=== PATIENT | female | born 1995 | race Caucasian/White ===

== ENCOUNTER 2018-05-19 16:44 | Emergency (ER) | payer OTHER ==
[~2018-05-19 16:44] MED LIST: ISOVUE-370 76%-LOCM 1 ML ONE
[2018-05-19 18:41] LABS: #Basophils 0.1 thou/uL (0.0-0.2); #Eosinphils 0.4 thou/uL (0.0-0.7); #Lymphocytes 1.7 thou/uL (1.20-3.40); #Monocytes 0.8 thou/uL (0.11-0.59); #Neutrophils 7.9 thou/uL (1.40-6.50); %Basophils 0.6 % (0.0-1.0); %Eosinophils 3.3 % (0.0-10.0); %Lymphocytes 15.5 % (21.0-51.0); %Monocytes 7.1 % (0.0-10.0); %Neutrophils 73.5 % (42.0-75.0); Hemoglobin 13.2 g/dL (12.0-16.0); Mean Corpuscular HGB CONC 31.9 g/dL (32.0-36.0); Mean Corpuscular Hemoglobin 29.1 pg (27.0-31.0); Mean Corpuscular Volume 91.1 fL (78.0-98.0); Mean Platelet Volume 6.3 fL (7.4-10.4); Platelet Count 460 thou/uL (130-400); RBC Distribution Width 11.7 % (11.5-14.5); Red Blood Cell (RBC) Count 4.53 mill/uL (4.20-5.40); White Blood Cell (WBC) Count 10.7 thou/uL (4.8-10.8)
[2018-05-19 19:01] LABS: ALT (SGPT) 38 U/L (8-55); AST (SGOT) 24 U/L (5-34); Alkaline Phosphatase 96 U/L (40-150); Anion Gap 11 mmol/L (10-20); BUN (Urea Nitrogen) 11 mg/dL (7.0-18.7); Bilirubin, Total 0.2 mg/dL (0.2-1.2); Calc. Creatinine Clearance 0 mL/min (70-130); Calcium 9.6 mg/dL (7.8-10.44); Carbon Dioxide 28 mmol/L (22-29); Chloride 103 mmol/L (98-107); Estimated GFR-MDRD Greater than 90; Globulin 3.7 g/dL (2.4-3.5); Glucose 80 mg/dL (70-105); Lipase 57 U/L (8-78); Potassium 4.2 mmol/L (3.5-5.1); Protein, Total 7.7 g/dL (6.0-8.3); Sodium 138 mmol/L (136-145)
[2018-05-19 19:13] LABS: Bilirubin Negative (Negative); Blood, Urine Negative (Negative); Clarity CLEAR (Clear); Glucose, Urine (Dipstick) Negative (Negative); Leukocyte Moderate (Negative); Nitrite Negative (Negative); Protein, Urine (Dipstick) Negative (Neg-Trace); Specific Gravity, Urine 1.007 (1.002-1.036); Urobilinogen 0.2 mg/dL (0.2-1.0)
[2018-05-19 19:17] LABS: Bacteria/HPF None Seen HPF (None Seen); Hyaline Casts/LPF 0-3 HYALINE CAST LPF (0-3 Hyaline); Pathc Cast-AUWi Flag 0.58 (0-2.49); RBC/HPF 0-3 HPF (0-3)
[2018-05-19 19:21] LABS: Pregnancy Test - Urine (BHCG) Negative (Negative); Pregu Control Background? CLEAR/WHITE (CLR/WHITE); Pregu Control Bar Appear? YES (CONTROL BAR); Specific Gravity 1.007 (1.002-1.036)
--- NOTE | 2018-05-19 21:26 | CT ---
CT ABDOMEN AND PELVIS WITH IV CONTRAST: 05/19/18 Multiple axial tomograms obtained through the abdomen and pelvis with IV enhancement. INDICATION: Complains of mass central abdomen with abdominal pain. No comparison. FINDINGS: Lung bases clear. Liver, spleen and pancreas unremarkable. Stomach and duodenum unremarkable. Adrenal glands and kidneys unremarkable. Urinary bladder mildly distended. There is a large amount of stool and a mildly dilated right and transverse colon. The colon is abnorm al beginning in the mid transverse colon and extending to the splenic flexure. There is mural thicken ing with surrounding inflammatory haziness. There is luminal narrowing in this region. There is mild fluid filled distention of the small bowel loops. Uterus and adnexa unremarkable. There is a small amount of free fluid in the cul-de-sac. There are nu merous nonspecific mesenteric lymph nodes as well as nonspecific periaortic lymph nodes. IMPRESSION: 1. Rather long segment of abnormal colon which begins at the mid transverse colon and extends to the splenic flexure. There is mural thickening with surrounding inflammatory change and luminal narr owing throughout this segment of colon. Focal colitis is certainly a consideration. Neoplasm cannot b e excluded. Recommend GI consultation with colonoscopy. 2. Mildly distended fluid filled loops of small bowel. 3. Small amount of fluid in the deep pelvis. POS: [facility]
== END 2018-05-19 21:56 | disposition home or self-care (01) ==
LOC: ERS 16:44
DX: K63.89 Other specified diseases of intestine (principal)
CPT/HCPCS: 36415; 74177; 80053; 81003; 81015; 81025; 83690; 85025; 87086; Q9966

== ENCOUNTER 2018-12-28 08:22 | Outpatient (CLI) | payer BC ==
[2018-12-28] MEDS ORDERED: Iopamidol 370 76% 100 ML VIAL ONE (09:00)
--- NOTE | 2018-12-28 11:32 | CT ---
CT ABDOMEN AND PELVIS WITH AND WITHOUT IV CONTRAST: HISTORY: Crohn's disease of the colon. Colon stricture of colon. Liver function tests abnormal. COMPARISON: 05/19/2018 FINDINGS: The lung bases are clear. The liver, spleen, pancreas, adrenal glands and kidneys are normal. No calc ified gallstones are seen. No free air or lymphadenopathy is noted in the abdomen or pelvis. Uterus a nd ovaries are present. A tiny amount of residual fluid is seen in the pelvis. The small bowel loops are not abnormally dilat ed. There is residual thickening in the rose of the splenic flexure of the colon. There is mild surr ounding pericolonic inflammatory change. There has been interval improvement since the previous exam, which demonstrated a long segment of abnormal colon involving the mid transverse colon and extending to the splenic flexure. No abnormally loculated fluid collection is seen to suggest abscess formatio n. IMPRESSION: 1. Interval improvement since 05/19/2018 with residual wall thickening of the splenic flexure and mil d surrounding inflammatory change. 2. Tiny amount of free fluid in the pelvis. POS: OFF
== END 2018-12-28 08:23 | disposition home or self-care (01) ==
LOC: SCSCT 08:22
PROVIDERS: ATTEND Internal Medicine
DX: K50.112 Crohn's disease of large intestine with intestinal obstruction (principal); R94.5 Abnormal results of liver function studies
CPT/HCPCS: 74178; Q9967

== ENCOUNTER 2022-05-09 08:10 | Outpatient (CLI) | payer BC | END 2022-05-09 08:11 | disposition home or self-care (01) | LOC: SCSRAD 08:10 | PROVIDERS: ATTEND Family Medicine | DX: Z11.1 Encounter for screening for respiratory tuberculosis (principal) | CPT/HCPCS: 71046 ==

== ENCOUNTER 2023-02-09 15:03 | Emergency (ER) | payer BC | END 2023-02-09 16:10 | disposition home or self-care (01) | LOC: ERS 15:03 | DX: S60.221A Contusion of right hand, initial encounter (principal); W22.8XXA Striking against or struck by other objects, initial encounter ==